=== PATIENT | female | born 1970 | race Caucasian/White ===

== ENCOUNTER 2021-09-06 20:30 | Emergency (ER) | payer BC, MEDICAID ==
[~2021-09-06 20:30] MED LIST: BENTYL 10MG CAP10 MG PO; FLEXERIL 10 MG10 MG PO; IBUPROFEN800 MG PO; PREDNISONE20 MG PO; PROVENTIL HFA6.7 GM INH; ZITHROMAX500 MG PO
[2021-09-06 21:49] LABS: HEMOGLOBIN 13.2 gm/dl (12.3-15.3); RED BLOOD COUNT 4.3 M/UL (4.00-5.10); WHITE BLOOD COUNT 11.1 K/UL (4.5-11.0)
[2021-09-06 22:20] LABS: BUN/CREATININE RATIO 14 (0-10)
== END 2021-09-07 01:15 | disposition home or self-care (01) ==
LOC: ER1 20:30
PROVIDERS: Preventive Medicine Occupational Medicine
DX: R07.89 Other chest pain (principal); Z20.822 Contact with and (suspected) exposure to COVID-19
CPT/HCPCS: 0240U; 71045; 80053; 81001; 82550; 82553; 83690; 83874; 83880; 84484; 85025; 85652; 87086; 93005; 96374; 99285; C9113